=== PATIENT | male | born 1955 | race African-American/Black ===

== ENCOUNTER 2018-06-16 13:23 | Emergency (ER) | payer OTHER ==
[~2018-06-16] VITALS: Ht 193 cm; Wt 108.9 kg
[~2018-06-16 13:23] MED LIST: ASPI-231 PO; EZET10TA6 PO; METF-371 PO; SILD100T57 PO; SITA100T7 PO; TELM80TA PO
[2018-06-16 14:08] LABS: Basophils # (auto) 0 uL; Basophils % (auto) 0.6 % (0.0-2.0); Eosinophils # (auto) 0.1 uL; Eosinophils % (auto) 1.7 % (0.0-7.0); Hematocrit 51.3 % (41.0-53.0); Hemoglobin 16.6 g/dL (13.5-17.5); Lymphocytes # (auto) 2.1 uL; Lymphocytes % (auto) 32.4 % (10.0-50.0); Mean Corpuscular Hemoglobin 29.4 pg (28.0-32.0); Mean Corpuscular Hgb Conc. 32.4 g/dL (32.0-36.0); Mean Corpuscular Volume 90.8 fL (80.0-100.0); Monocytes # (auto) 0.6 uL; Neutrophils # (auto) 3.7 uL; Neutrophils % (auto) 56.3 % (37.0-80.0); Nucleated Red Blood Cells % 0.1 %; Platelet Count (auto) 265 10^3/uL (140-450); Red Blood Cells 5.66 10^6/uL (4.5-5.90); Red Cell Distribution Width 15.6 % (11.8-14.3); White Blood Cell 6.5 10^3/uL (4.4-10.8)
[2018-06-16 14:29] LABS: Calcium 10.1 mg/dL (8.5-10.1); Chloride 105 mmol/L (98-107); Potassium 4.3 mmol/L (3.5-5.1); Sodium 138 mmol/L (136-145)
[2018-06-16 14:38] LABS: Alanine Aminotransferase 39 U/L (16-61); Albumin 3.7 g/dL (3.4-5.0); Alkaline Phosphatase 78 U/L (45-117); Anion Gap 2 (5-15); Aspartate Aminotransferase 20 U/L (15-37); BUN/Creatinine Ratio 9.4; Bilirubin, Total 0.5 mg/dL (0.2-1.0); Blood Urea Nitrogen 12 mg/dL (7-18); Carbon Dioxide 31 mmol/L (21-32); GFR African American 73 mL/min; GFR Non-African American 60 mL/min; Glucose 134 mg/dL (74-106); Magnesium 2.3 mg/dL (1.6-2.6)
[2018-06-16 18:03] VITALS: BP 139/78
== END 2018-06-16 20:05 | disposition home or self-care (01) ==
LOC: ER 13:27
DX: R07.89 Other chest pain (principal); E11.65 Type 2 diabetes mellitus with hyperglycemia; I10 Essential (primary) hypertension; E78.5 Hyperlipidemia, unspecified
CPT/HCPCS: 36415; 71046; 80053; 83735; 84484; 85025; 93005